=== PATIENT | female | born 1950 | race Caucasian/White ===

== ENCOUNTER 2017-08-01 05:01 | Day surgery (SDC) | payer MEDICARE, BC ==
[2017-08-01] MEDS ORDERED: CEFAZOLIN SODIUM/DEXTROSE,ISO 50 ML IV ONE (05:35)
[2017-08-01] MEDS ORDERED: FENTANYL PF 100MCG/2ML AMPUL ONE (06:41)
[2017-08-01] MEDS ORDERED: BUPIVACAINE 0.5 % PF 150 MG/30 ML VIAL ONE (07:09)
[2017-08-01] MEDS ORDERED: HYDROMORPHONE 2 MG/1 ML SDV ONE (07:48)
[2017-08-01] MEDS ORDERED: ONDANSETRON HCL/PF 4 MG/2 ML VIAL ONE (08:06)
== END 2017-08-01 10:25 | disposition home or self-care (01) ==
LOC: DS 05:01
PROVIDERS: ATTEND Specialist
DX: S83.241A Other tear of medial meniscus, current injury, right knee, initial encounter (principal); X58.XXXA Exposure to other specified factors, initial encounter; Y93.89 Activity, other specified; Y92.89 Other specified places as the place of occurrence of the external cause; Y99.9 Unspecified external cause status; M94.262 Chondromalacia, left knee; M22.42 Chondromalacia patellae, left knee; M23.42 Loose body in knee, left knee; E03.9 Hypothyroidism, unspecified; I10 Essential (primary) hypertension; L93.0 Discoid lupus erythematosus; E66.01 Morbid (severe) obesity due to excess calories; E55.9 Vitamin D deficiency, unspecified; K74.60 Unspecified cirrhosis of liver; D69.6 Thrombocytopenia, unspecified
CPT/HCPCS: 88304-TC; 88305-TC; 88311-TC; A4217; A6253; A6402; J0690; J1100; J1170; J2405; J2704; J3010; J3490